=== PATIENT | male | born 1975 | race Caucasian/White ===

== ENCOUNTER 2017-10-28 14:02 | Emergency (ER) | payer OTHER ==
[~2017-10-28] VITALS: Ht 175.3 cm; Wt 95.3 kg
--- NOTE | 2017-10-28 14:59 | ED HAND/WRIST INJURY COMPLAINT ---
History of Present Illness General Chief Complaint: Laceration Procedure Stated Complaint: R MIDDLE FINGER LAC Source: patient, old records Exam Limitations: no limitations Vital Signs & Intake/Output Vital Signs & Intake/Output Vital Signs Date Time Temp Pulse Resp B/P B/P Pulse O2 O2 Flow FiO2 Mean Ox Delivery Rate 10/28 1540 98.1 85 17 144/79 99 Room Air 10/28 1407 96.9 86 18 158/92 96 Room Air Allergies Coded Allergies: No Known Allergies (10/28/17) Triage Note: PT TO ER C/C LAC TO RIGHT MIDDLE FINGER WHEN FINGER GOT CAUGHT INBETWEEN TWO PIECES OF METAL. MILD SWELLING NOTED. DRESSING APPLIED. BLEEDING CONTROLLED. UNSURE OF LAST TETANUS INJ Triage Nurses Notes Reviewed? yes Occurred: just prior to arrival Duration: hour(s): (1), constant Timing: recent history Injury Environment: home Severity: mild Severity Numbers: 4 Pain/Injury Location: Right: 3rd finger. Context: laceration Method of Injury: laceration No Modifying Factors: none Associated Symptoms: none HPI: 42-year-old male presents status post sustaining laceration to his right third finger just prior to arrival when his finger was caught between a metal geremias. He denies any difficult due to range of motion of finger no numbness or tingling. He is right-hand dominant is not taken anything for pain. His last tetanus is unknown. (Jay Jay Davis) Past History Travel History Traveled to [place] past 21 day No Medical History Any Pertinent Medical History? none Tetanus Vaccine: Surgical History Surgical History: none Psychosocial History What is your primary language Qatari Tobacco Use: Never used Family History Hx Contributory? No (Jay Jay Davis) Review of Systems Review of Systems Constitutional: Reports: see HPI. Comments Review of systems: See HPI, All other systems negative. Constitutional, no chills no fever, Skin: no rashes, no change in skin Muscle skeletal: no back pain, no neck pain, Neurologic: , no headache Heme/endocrine: No bruising (Jay Jay Davis) Physical Exam Physical Exam General Appearance: well developed/nourished, no apparent distress, alert Hand Left: normal inspection Hand Right: lacerations, 3rd finger Comments: Well-developed well-nourished patient in no apparent distress. HEENT: Atraumatic, extraocular motion intact Neck: Supple, FROM Back: FROM Respiratory: No respiratory distress. Patient speaking in full complete sentences. Shoulder: Atraumatic/Stable. FROM . Elbow: Atraumatic/stable. FROM. No laxity Upper arm/Forearm: Atraumatic. Nontender. No edema, 5 out of 5 property assistant strength noted to bilateral upper extremities Hand/Wrist: 1 cm laceration noted to the palmar aspect right third finger over the middle phalanx, full range of motion of the finger both active and passive, normal sensation capillary refills within normal limits FROM Pulses: Normal/equal radial pulses bilaterally. Brisk cap refill lower Extremities: full range of motion Neuro: awake, alert, and oriented to person, place and time. There were no obvious focal neurologic abnormalities. Skin: Warm & dry;No appreciable rash on exposed skin Psych: Mood affect normal, normal memory normal judgment. Diagram Hands Front 1) Laceration (Keven CHU,Jay Jay) Progress Differential Diagnosis: dislocation, fracture, sprain, tendon inj, cellulitis Plan of Care: Orders Procedure Date/time Status XRY-HAND, 3 View RIGHT 10/28 1406 Active Patient is declining for pain when offered tetanus IM ordered. Digital block right third figure performed by myself, 3 sutures placed by myself patient tolerated procedure well there is no active bleeding sterile dressing bacitracin applied. I discussed with the patient possibly a foreign body not seen examination still exists return precautions including signs of infection to look out for were discussed at length he feels comfortable with plan Diagnostic Imaging: Viewed by Me: Radiology Read. Discussed w/RAD: Radiology Read. Radiology Impression: PATIENT: TYLER RHODES PRESENT AGE: 42 PATIENT ACCOUNT NO: [id number] : 74 LOCATION: [facility] ORDERING PHYSICIAN: Jay Jay CHU SERVICE DATE: 10/28/17 EXAM TYPE: RAD - XRY- HAND, RIGHT EXAMINATION: XR HAND, RIGHT CLINICAL INFORMATION: Trauma COMPARISON: None TECHNIQUE: PA, lateral, and oblique views of the right hand. FINDINGS: There is soft tissue swelling and laceration of the plantar aspect right third finger. No radiodense foreign body. No associated acute fracture or dislocation. IMPRESSION: Soft tissue injury of the right third finger without associated acute fracture. DICTATED BY: Tan Cameron MD DATE/TIME DICTATED:10/28/171535 RV DETAILER:YEIMI DATE/TIME TRANSCRIBED:10/28/17 / 1536 CONFIDENTIAL, DO NOT COPY WITHOUT APPROPRIATE AUTHORIZATION. <Electronically signed in Other Vendor System> SIGNED BY: Arlene Cameron MD 10/28/17 6821 (Jay Jay Davis) Departure Departure Disposition: HOME OR SELF CARE Condition: Stable Clinical Impression Primary Impression: Finger laceration Referrals: Unknown (PCP/Family) Additional Instructions: Keep area clean and covered as discussed, bacitracin daily. Return to ER in 7- 10 days for suture removal. Please understand that foreign bodies such as glass or wood may not be visible to the naked eye or on plain x-rays. If the wound becomes red, swollen, increasingly more painful or if there is any drainage from the wound, please have it reevaluated by a physician for the possibility of a retained foreign body. Departure Forms: Customer Survey General Discharge Information (Jay Jay Davis) PA/PROCESSING ASSISTANT Co-Sign Statement Statement: ED Attending supervision documentation- [] I saw and evaluated the patient. I have also reviewed all the pertinent lab results and diagnostic results. I agree with the findings and the plan of care as documented in the PA's/PROCESSING ASSISTANT's documentation. [X] I have reviewed the ED Record and agree with the PA's/PROCESSING ASSISTANT's documentation. [] Additions or exceptions (if any) to the PAs/PROCESSING ASSISTANT's note and plan are summarized below: [] (Tyrese Hurst DO) Procedures Laceration/Wound Repair Laceration/Wound Repair: Wound Location: upper extremity (r 3rd finger) Wound's Depth, Shape: linear, superficial Wound Length (cm): 1 Wound Explored: clean, no foreign body removed, irrigated extensively Irrigated w/ Saline (ccs): 150 Anesthesia: digit block Volume Anesthetic (ccs): 4 Suture Size/Type: 3:0 Number of Sutures: 3 Layer Closure? No Sterile Dressing Applied: Yes Tetanus Status: up to date (Jay Jay Davis)
[2017-10-28 15:40] VITALS: BP 144/79
--- NOTE | 2017-10-28 15:43 | RADIOLOGY REPORT ---
EXAMINATION: XR HAND, RIGHT CLINICAL INFORMATION: Trauma COMPARISON: None TECHNIQUE: PA, lateral, and oblique views of the right hand. FINDINGS: There is soft tissue swelling and laceration of the plantar aspect right third finger. No radiodense foreign body. No associated acute fracture or dislocation. IMPRESSION: Soft tissue injury of the right third finger without associated acute fracture.
== END 2017-10-28 15:41 ==
LOC: ERH 14:02
DX: S61.212A Laceration without foreign body of right middle finger without damage to nail, initial encounter (principal); W23.0XXA Caught, crushed, jammed, or pinched between moving objects, initial encounter; Y92.009 Unspecified place in unspecified non-institutional (private) residence as the place of occurrence of the external cause; Y93.9 Activity, unspecified
CPT/HCPCS: 73130-RT; 90471; 90714; J2001